=== PATIENT | male | born 1965 | race Caucasian/White ===

== ENCOUNTER 2018-04-07 15:54 | Emergency (ER) | payer MEDICAID ==
[~2018-04-07] VITALS: Ht 172.7 cm; Wt 64.9 kg
--- NOTE | 2018-04-07 16:05 | NUR ---
BBPA FROM [facility]: ABDOMINAL PAIN, NAUSEA. SEND TO ER TO R/O SBO. A/OX 2, BREATHING EVEN AND UNLABORED AT THIS TIME. NO SOB, NAD, PATIENT IS HYPERTENSIVE. SAFETY AND COMFORT MEASURES IN PLACE. MD AT BEDSIDE FOR EVAL.
[2018-04-07] MEDS ORDERED: ONDANSETRON HCL/PF 4 MG/2 ML VIAL ONE (16:08)
[2018-04-07] MEDS ORDERED: HYDROMORPHONE INJ 2 MG/ML DISP.SYRIN ONE (16:09)
--- NOTE | 2018-04-07 16:20 | NUR ---
NEW IV STARTED ON RAC, 20G. BLOOD DRAWN AND SENT TO LAB.
[2018-04-07 16:28] LABS: BASOPHILS % (AUTO) 0.3 % (0.0-2.0); EOSINOPHILS % (AUTO) 4.3 % (0.0-6.0); HEMATOCRIT 36 % (39-51); HEMOGLOBIN 12.3 g/dL (13.5-17.5); LYMPHOCYTES # (AUTO) 1.9 /CMM (0.8-4.8); LYMPHOCYTES % (AUTO) 24.9 % (20.0-44.0); MEAN CORPUSCULAR HEMOGLOBIN 27 PG (26.0-33.0); MEAN CORPUSCULAR HGB CONC 34 g/dl (31.0-36.0); MEAN CORPUSCULAR VOLUME 81 fL (80-96); MONOCYTES # (AUTO) 0.4 /CMM (0.1-1.30); NEUTROPHILS # (AUTO) 5.1 /CMM (1.8-8.9); NEUTROPHILS % (AUTO) 65.5 % (43.0-81.0); PLATELET COUNT (AUTO) 261 /CMM (150-450); RDW COEFFICIENT OF VARIATION 13.9 (11.5-15.0); WHITE BLOOD COUNT (AUTO) 7.7 K/uL (4.3-11.0)
[2018-04-07] MEDS ORDERED: HYDROMORPHONE INJ 2 MG/ML DISP.SYRIN IV ONE (16:30)
[2018-04-07] MEDS ORDERED: IV NS 0.9% 1,000 ML BAG IV ONE (16:30)
[2018-04-07] MEDS ORDERED: ONDANSETRON HCL/PF 4 MG/2 ML VIAL IVP ONE (16:30)
[2018-04-07 16:38] LABS: CALCIUM, SERUM 10.3 mg/dL (8.5-10.1); CREATININE 2.5 mg/dL (0.6-1.3); POTASSIUM 4.8 mmol/L (3.5-5.1)
[2018-04-07 16:44] LABS: ALBUMIN 2.4 g/dL (3.4-5.0); BILIRUBIN,DIRECT 0.1 mg/dL (0.0-0.2); BILIRUBIN,TOTAL 0.3 mg/dL (0.2-1.0); TOTAL PROTEIN, SERUM 7.8 g/dL (6.4-8.2)
[2018-04-07] MEDS ORDERED: DICYCLOMINE HCL INJ 20 MG/2 ML AMPUL IM ONE ×2 (18:00→18:04)
[2018-04-07] MEDS ORDERED: MAGNESIUM CITRATE 296 ML BOTTLE PO ONE (18:00)
[2018-04-07] MEDS ORDERED: MINERAL OIL 133 ML (PYXIS) 1 EA ENEMA RC ONE ×2 (18:00→18:03)
--- NOTE | 2018-04-07 18:02 | NUR ---
URINE OBTAINED AND SENT TO LAB.
[2018-04-07] MEDS ORDERED: MAGNESIUM CITRATE 296 ML BOTTLE ONE (18:04)
[2018-04-07] MEDS ORDERED: ONDA4TAB8 SL (18:29)
[2018-04-07] MEDS ORDERED: ALBU18HF2 IH (18:29)
[2018-04-07] MEDS ORDERED: MAGN400O6 PO (18:29)
[2018-04-07] MEDS ORDERED: LEVE250T2 PO (18:29)
[2018-04-07] MEDS ORDERED: CLON0.1T PO (18:29)
[2018-04-07] MEDS ORDERED: DIPH25CA46 PO (18:29)
[2018-04-07] MEDS ORDERED: QUET25TA PO (18:29)
[2018-04-07] MEDS ORDERED: LACT10SO PO (18:29)
[2018-04-07] MEDS ORDERED: CARV12.52 PO (18:29)
[2018-04-07] MEDS ORDERED: HYDR-548 PO (18:29)
[2018-04-07] MEDS ORDERED: CLON0.3T PO (18:29)
[2018-04-07] MEDS ORDERED: ATOR40TA PO (18:29)
[2018-04-07] MEDS ORDERED: BISA10SU8 RC (18:29)
[2018-04-07] MEDS ORDERED: MULT-24 PO (18:29)
[2018-04-07] MEDS ORDERED: ASCO500T9 PO (18:29)
[2018-04-07] MEDS ORDERED: FERR325T23 PO (18:29)
[2018-04-07] MEDS ORDERED: AMLO10TA2 PO (18:29)
[2018-04-07] MEDS ORDERED: PANT40TA4 PO (18:29)
[2018-04-07] MEDS ORDERED: INSU100V27 SQ (18:29)
[2018-04-07] MEDS ORDERED: INSU100V7 SQ (18:29)
[2018-04-07] MEDS ORDERED: MAG30ORA PO (18:29)
[2018-04-07] MEDS ORDERED: NA P133E RC (18:29)
[2018-04-07] MEDS ORDERED: MORP30CP13 PO (18:29)
[2018-04-07] MEDS ORDERED: ASPI-1152 PO (18:29)
[2018-04-07] MEDS ORDERED: GABA-532 PO (18:29)
[2018-04-07] MEDS ORDERED: ZINC220C8 PO (18:29)
[2018-04-07] MEDS ORDERED: METH10TA2 PO (18:29)
[2018-04-07 18:46] LABS: APPEARANCE,URINE CLEAR (CLEAR); BILIRUBIN,URINE NEGATIVE (NEGATIVE); BLOOD, URINE 2+ Ery/uL (NEGATIVE); COLOR,URINE YELLOW (YELLOW); KETONES,URINE NEGATIVE (NEGATIVE); LEUKOCYTE ESTERASE ,URINE NEGATIVE (NEGATIVE); NITRITE, URINE NEGATIVE (NEGATIVE); PH,URINE 5.5 (5.0-8.0); PROTEIN,URINE 3+ mg/dl (NEGATIVE); UGLUCOSE TRACE mg/dL (NEGATIVE); UROBILINOGEN,URINE 0.2 EU/dL (0.2)
[2018-04-07 18:59] LABS: BACTERIA,URINE 1+ /HPF (None Seen); HYALINE CASTS, URINE Rare /LPF (None Seen); SQUAMOUS EPITHELIAL CELL,UR 0-2 /HPF (None Seen); YEAST,URINE Few /HPF (None Seen)
[2018-04-07 19:00] LABS: MUCUS,URINE Few /LPF (None Seen)
--- NOTE | 2018-04-07 19:09 | NUR ---
REPORT GIVEN TO ROMEL REZA FOR JONY.
--- NOTE | 2018-04-07 19:10 | NUR ---
RECEIVED REPORT YANCY PARRA FOR JONY.
--- NOTE | 2018-04-07 19:40 | NUR ---
CALLED [facility] FOR TRANSPORT BACK TO [facility], ETA 2044, TRIP [phone]
[2018-04-07] MEDS ORDERED: HYDROCODONE/APAP 10/325MG 1 EA TABLET PO ONE (20:30)
[2018-04-07] MEDS ORDERED: HYDROCODONE/APAP 10/325MG 1 EA TABLET ONE (20:30)
--- NOTE | 2018-04-07 20:48 | NUR ---
DR. LUO AWARE OF PT CURRENT BP CONVERSION WORKER DALTON FROM [facility] AWARE PT BP 198/87, PER CONVERSION WORKER OKAY TO ACCEPT PT.
--- NOTE | 2018-04-07 20:51 | NUR ---
IV removed. Catheter intact and site benign. Pressure and 4x4 applied to site. No bleeding noted. Patient discharged to home in stable condition. Written and verbal after care instructions given. Patient verbalizes understanding of instruction. pt to be transferred back [facility] via [facility]. report given to anastasiya 213. pt aware of transfer and with all personal belongings. dr. roberts aware of v/s cleared to d/c. per anastasiya took over care to transfer pt.
[2018-04-07 20:53] VITALS: BP 198/87
== END 2018-04-07 20:54 | disposition home or self-care (01) ==
LOC: ER 16:03
DX: K59.00 Constipation, unspecified (principal); R10.84 Generalized abdominal pain; L89.90 Pressure ulcer of unspecified site, unspecified stage; E11.621 Type 2 diabetes mellitus with foot ulcer; L97.509 Non-pressure chronic ulcer of other part of unspecified foot with unspecified severity; I11.0 Hypertensive heart disease with heart failure; I50.9 Heart failure, unspecified; Z89.511 Acquired absence of right leg below knee; Z79.4 Long term (current) use of insulin; Z91.040 Latex allergy status; Z88.8 Allergy status to other drugs, medicaments and biological substances; Z79.82 Long term (current) use of aspirin; Z86.19 Personal history of other infectious and parasitic diseases
CPT/HCPCS: 36415; 74176; 80048; 80076; 81001; 83605; 83690; 85025; 85730; 96361; 96372; 96374; 96375; 99285; A4606; J0500; J1170; J2405; J7030; Z7610; 81000-TC